=== PATIENT | male | born 1980 | race American Indian/Alaskan Native ===

== ENCOUNTER 2018-03-14 15:17 | Emergency (ER) | payer OTHER ==
[2018-03-14 15:32] VITALS: BP 136/94
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
[2018-03-14] MEDS ORDERED: TORADOL IM ONE (18:41)
== END 2018-03-14 19:05 | disposition home or self-care (01) ==
LOC: ED 15:17
DX: M54.32 Sciatica, left side (principal)
CPT/HCPCS: 96372; 99282; J1885